=== PATIENT | male | born 1985 | race Caucasian/White ===

== ENCOUNTER 2019-08-30 15:31 | Emergency (ER) | payer OTHER ==
[~2019-08-30] VITALS: Ht 167.6 cm; Wt 65.8 kg
[2019-08-30 15:56] VITALS: BP 131/75
--- NOTE | 2019-08-30 16:02 | NUR ---
PT AMB TO BED 11
--- NOTE | 2019-08-30 16:40 | NUR ---
Patient being evaluated by NIRAJ ESCALANTE at bedside.
--- NOTE | 2019-08-30 16:45 | NUR ---
C/O URINARY BURNING SENSATION AND PENILE DISCHARGE X 3 DAYS. PT REPORTS HE DID HAVE A SEXUAL INTERCOURSE APPROX 1 AND A HALF WEEK AGO. DENIES N/V/D. PT ALERT AND AWAKE, VS STABLE. AMBULATORY. MED HX: DENIES
[2019-08-30] MEDS ORDERED: cefTRIAXone 250 MG in LIDOCAINE MPF 1% 0.9 ML IM ONE (16:50)
[2019-08-30] MEDS ORDERED: metroNIDAZOLE 250 MG TAB PO ONE (16:50)
[2019-08-30] MEDS ORDERED: AZITHROMYCIN 250 MG TAB PO ONE (16:50)
[2019-08-30] MEDS ORDERED: LIDOCAINE MPF 1% 5 ML ONE (16:58)
[2019-08-30] MEDS ORDERED: cefTRIAXone 250 MG VIAL ONE (16:58)
--- NOTE | 2019-08-30 17:13 | NUR ---
ZITHRO, FLAGYL, AND ROCEHPIN ADMINISTERED
[2019-08-30 17:30] VITALS: BP 138/81
--- NOTE | 2019-08-30 17:30 | NUR ---
Patient discharged with v/s stable. Written and verbal after care instructions given and explained REGARDING DYSURIA. Patient alert, oriented and verbalized understanding of instructions. Ambulatory with steady gait. All questions addressed prior to discharge. ID band removed. Patient advised to follow up with PMD. Rx of MOTRIN given. Patient educated on indication of medication including possible reaction and side effects. Opportunity to ask questions provided and answered. PT INSTRUCTED THAT HE WILL BE NOTIFED IF URINE COMES BACK POSITIVE FOR STD
[2019-09-02 08:07] LABS: CHLAMYDIA TRACHOMATIS AMP DNA Negative (Negative)
== END 2019-08-30 17:30 | disposition home or self-care (01) ==
LOC: EDBD 15:31 → MED 15:31
DX: A64 Unspecified sexually transmitted disease (principal); R30.0 Dysuria; F17.210 Nicotine dependence, cigarettes, uncomplicated
CPT/HCPCS: 36415; 81002; 87491; 96372; 99283; J0696; J2001

== ENCOUNTER 2020-03-17 08:34 | Emergency (ER) | payer OTHER ==
--- NOTE | 2020-03-17 08:40 | NUR ---
NO RESPONSE WHEN CALLED OUT TO LOBBY
--- NOTE | 2020-03-17 08:52 | NUR ---
NO RESPONSE WHEN CALLED OUT TO LOBBY
--- NOTE | 2020-03-17 09:08 | NUR ---
NO RESPONSE WHEN CALLED OUT INTO LOBBY
--- NOTE | 2020-03-17 09:22 | NUR ---
PATIENT LEFT WITHOUT BEING SEEN BY DR. BENSON. NO FURTHER CARE PROVIDED FOR PATIENT.
== END 2020-03-17 09:22 | disposition home or self-care (01) ==
LOC: MED 08:34
DX: Z53.21 Procedure and treatment not carried out due to patient leaving prior to being seen by health care provider (principal)

== ENCOUNTER 2020-04-01 01:07 | Emergency (ER) | payer OTHER ==
[~2020-04-01] VITALS: Ht 167.6 cm; Wt 70.3 kg
[2020-04-01 01:20] VITALS: BP 119/69
--- NOTE | 2020-04-01 01:57 | NUR ---
PT EVALUATED AND DISCHARGED BY ELISABET STEPHENSON. ALL DISCHARGE TEACHING, MEDICATION ADMINSITRATION AND SIDE EFFECTS EXPLAINED BY DR. STEPHENSON. PT GIVEN RX OF DEXAMETHASONE
== END 2020-04-01 01:57 | disposition home or self-care (01) ==
LOC: MED 01:07
DX: R07.9 Chest pain, unspecified (principal); R05 Cough; R50.9 Fever, unspecified; R06.02 Shortness of breath; Z20.828 Contact with and (suspected) exposure to other viral communicable diseases
CPT/HCPCS: 71045; 99283

== ENCOUNTER 2020-04-24 02:41 | Emergency (ER) | payer OTHER ==
--- NOTE | 2020-04-24 02:50 | NUR ---
PATIENT CALLED TO BE TRIAGE, NO RESPONSE PATIENT LEFT WITHOUT BEING SEEN BY DR. STERLING. NO FURTHER CARE PROVIDED FOR PATIENT.
--- NOTE | 2020-04-24 02:55 | NUR ---
CALLED FOR THE SECOND TIME , NO RESPONSE
--- NOTE | 2020-04-24 03:00 | NUR ---
CALLED FOR THE THIRD TIME , NO RESPONSE
== END 2020-04-24 02:50 | disposition left against medical advice (07) ==
LOC: MED 02:41
DX: R10.9 Unspecified abdominal pain (principal); Z53.21 Procedure and treatment not carried out due to patient leaving prior to being seen by health care provider

== ENCOUNTER 2020-05-16 22:16 | Emergency (ER) | payer OTHER ==
[~2020-05-16] VITALS: Ht 167.6 cm; Wt 70.8 kg
[2020-05-16 22:29] VITALS: BP 140/90
--- NOTE | 2020-05-16 22:29 | NUR ---
TO BED ambulatory
--- NOTE | 2020-05-16 22:33 | NUR ---
Selena almonte in [facility] - 05/16/20 at 2350 by LANCE ERMD AT BEDSIDE FOR MEDICAL EVALUATION.
--- NOTE | 2020-05-16 22:33 | NUR ---
34 YR OLD MALE PRESENTED TO THE ER WITH CC OF COUGH AND DIZZINESS. PT IS AOX4. PT STATES COUGH WITH LITTLE WHITE PHLEM FOR PAST 1 1/2 WEEKS. PT STATES DIZZINESS PAST 3 DAYS. PT LUNG SOUNDS CLEAR BILATERALLY WITH EQUAL RISE AND FALL UPON RESPIRATION. PT DENIES NAUSEA, PT DENIES PAIN, AND PT DENIES OTHER MEDICAL COMPLAINTS. BED LOCKED IN LOWEST POSITION WITH 1 SIDE RAIL UP. WILL CONTINUE TO MONITOR. HISTORY- NONE ALLERGIES- NONE
--- NOTE | 2020-05-16 22:38 | NUR ---
ELISABET Patrick at bedside for medical evaluation.
[2020-05-16] MEDS ORDERED: BENZONATATE 100 MG CAPLF PO ONE ×2 (22:45→22:54)
[2020-05-16] MEDS ORDERED: NACL 0.9% 1,000 ML IV ONE (22:45)
[2020-05-16] MEDS ORDERED: DEXAMETHASONE 4 MG/ML VIAL PO ONE (22:45)
--- NOTE | 2020-05-16 22:47 | NUR ---
Pt ambulated to ER bed 9 w/ steady gait.
--- NOTE | 2020-05-16 22:52 | NUR ---
LAB AT BEDSIDE.
--- NOTE | 2020-05-16 22:52 | NUR ---
NOVEL AND INFLUENZA SWABS COLLECTED AND HANDED TO LAB.
--- NOTE | 2020-05-16 22:54 | NUR ---
xray at bedside.
[2020-05-16 23:02] LABS: BASOPHILS % (AUTO) 0.3 % (0.0-2.0); EOSINOPHILS # (AUTO) 0.1 K/uL (0-0.4); EOSINOPHILS % (AUTO) 1.1 % (0.0-4.0); HEMATOCRIT 41.9 % (36-52); HEMOGLOBIN 13.9 g/dL (12.0-18.0); LYMPHOCYTES # (AUTO) 0.9 K/uL (2.0-11.5); LYMPHOCYTES % (AUTO) 17.5 % (20.5-51.1); MEAN CORPUSCULAR HEMOGLOBIN 31 pg (27-31); MEAN CORPUSCULAR HGB CONC 33 g/dL (33-37); MEAN CORPUSCULAR VOLUME 92.3 fL (80-94); MONOCYTES # (AUTO) 0.7 K/uL (0.8-1.0); NEUTROPHILS # (AUTO) 3.3 K/uL (1.8-7.7); NEUTROPHILS % (AUTO) 66.1 % (42.2-75.2); PLATELET COUNT (AUTO) 414 K/uL (140-450); RED BLOOD CELL COUNT(AUTO) 4.54 MIL/uL (4.20-6.10); RED CELL DISTRIBUTION WIDTH 13.4 % (11.6-13.7)
--- NOTE | 2020-05-16 23:12 | NUR ---
EKG AT BEDSIDE.
[2020-05-16 23:13] LABS: ANION GAP 9.7 (8-16); CARBON DIOXIDE 31.8 mmol/L (21-32); POTASSIUM 4.5 mmol/L (3.5-5.1)
[2020-05-16] MEDS ORDERED: DEXAMETHASONE 4 MG/ML VIAL ONE (23:19)
--- NOTE | 2020-05-17 00:09 | NUR ---
PT PROVIDED Shannan GARCIA.
--- NOTE | 2020-05-17 00:31 | NUR ---
PT WAS FOUND AWAKE IN SEMI-ALMONTE'S POSITION IN BED. PT DENIES DISTRESS AND MEDICAL COMPLAINTS. BED LOCKED IN LOWEST POSITION WITH 1 SIDE RAIL UP.
[2020-05-17 00:36] VITALS: BP 110/70
--- NOTE | 2020-05-17 00:36 | NUR ---
IV removed, catheter intact and site benign. Applied folded 4x4 gauze and tape to stop bleeding.
--- NOTE | 2020-05-17 00:36 | NUR ---
Patient discharged with v/s stable. Written and verbal after care instructions given and explained. Patient alert, oriented and verbalized understanding of instructions. Ambulatory with steady gait. All questions addressed prior to discharge. ID band removed. Patient advised to follow up with PMD. Rx of ALBUTEROL, TESSALON PERLES, PROMETHAZINE, AND AZITHROMYCIN given. Patient educated on indication of medication including possible reaction and side effects. Opportunity to ask questions provided and answered.
== END 2020-05-17 00:36 | disposition home or self-care (01) ==
LOC: MED 22:16
DX: J20.9 Acute bronchitis, unspecified (principal); Z20.822 Contact with and (suspected) exposure to COVID-19
CPT/HCPCS: 71045; 80048; 85025; 87804; 93005; 96360; 99285; J1100; J7030; U0003

== ENCOUNTER 2020-11-03 20:59 | Emergency (ER) | payer OTHER ==
--- NOTE | 2020-11-03 21:46 | NUR ---
PT CALLED INSIDE LOBBY AND OUTSIDE. NO ANSWER.
--- NOTE | 2020-11-03 22:08 | NUR ---
PATIENT LEFT WITHOUT BEING SEEN BY DR. BLOCK. NO FURTHER CARE PROVIDED FOR PATIENT.
== END 2020-11-03 22:08 | disposition left against medical advice (07) ==
LOC: MED 20:59
DX: Z53.21 Procedure and treatment not carried out due to patient leaving prior to being seen by health care provider (principal)

== ENCOUNTER 2020-12-05 03:39 | Emergency (ER) | payer OTHER ==
[~2020-12-05] VITALS: Ht 167.6 cm; Wt 70.8 kg
[2020-12-05 03:45] VITALS: BP 135/98
--- NOTE | 2020-12-05 03:45 | NUR ---
to bed ambulatory
--- NOTE | 2020-12-05 03:49 | NUR ---
PATIENT LEFT WITHOUT BEING SEEN BY DR. DUKES. NO FURTHER CARE PROVIDED FOR PATIENT.
== END 2020-12-05 03:49 | disposition left against medical advice (07) ==
LOC: MED 03:39
DX: R10.9 Unspecified abdominal pain (principal); R42 Dizziness and giddiness; Z53.21 Procedure and treatment not carried out due to patient leaving prior to being seen by health care provider